=== PATIENT | female | born 1995 | race Caucasian/White ===

== ENCOUNTER → 2020-09-29 09:50 | Outpatient (CLI) | payer OTHER, MEDICAID, SELFPAY | PROVIDERS: PCP Family Medicine; Referring Provider Physician Assistant Medical; Visit Provider Physician Assistant Medical | DX: G56.01 Carpal tunnel syndrome, right upper limb (principal) | CPT/HCPCS: 95886; 95909 ==

== ENCOUNTER → 2023-07-22 10:13 | Outpatient (CLI) | payer OTHER, MEDICAID, SELFPAY ==
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
== END ==
LOC: RAD 10:15
PROVIDERS: PCP Internal Medicine; Referring Provider Physician Assistant Medical; Visit Provider Physician Assistant Medical
DX: M79.89 Other specified soft tissue disorders (principal)
CPT/HCPCS: 73130

== ENCOUNTER 2024-04-20 17:24 | Emergency (ER) | payer OTHER, SELFPAY ==
[2024-04-20 17:42] VITALS: BP 151/90; PULSE 100; RESP 16; TEMP 36.7; O2SAT 99; BMI 43.8
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
[2024-04-20 21:08] VITALS: BP 171/106; PULSE 85; RESP 18; O2SAT 100
--- NOTE | 2024-04-20 21:11 | PC.NURSE ---
2105: Pt calls from waiting room stating pt is having change in speech. This RN checks on patient. Pt is alert to person, place, but not date of or year. Pt is diaphoretic. Speech is clear and coherent. Pt has C-spine tenderness. Pt placed in rigid c-collar per protocol. Re-vitaled. Provider Elijah made aware. Verbal orders for CT head/brain w/o con and CT cervical spine w/o w/o con given.
[2024-04-20 21:41] LABS: Add Manual Diff / Slide Review NO; Basophils Absolute Auto 0 /uL (0-100); Basophils Percent Auto 0.4 % (0-2); Eosinophils Absolute Auto 100 /uL (0-450); Eosinophils Percent Auto 1.8 % (2-4); Hematocrit 40.5 % (36-46); Hemoglobin 13.6 g/dL (12.0-16.0); Lymphocytes Absolute Auto 2200 /uL (1100-4500); Mean Corpuscular HGB Conc 33.7 % (30-36); Mean Corpuscular Hemoglobin 30.7 PG (26-34); Mean Corpuscular Volume 91.1 fL (80-100); Monocytes Absolute Auto 700 /uL (0-900); Monocytes Percent Auto 8.4 % (3-14); Neutrophils Absolute Auto 5200 /uL (1500-7000); Neutrophils Percent Auto 62.4 % (50-75); Platelet Count 231 X10^3/uL (150-400); Red Blood Cell Count 4.45 X10^6/uL (4.0-5.2); Red Cell Distribution Width 13.1 % (11.6-14.8); White Blood Cell Count 8.3 X10^3/uL (4.5-11.0)
[2024-04-20 21:42] VITALS: BP 134/83; PULSE 90; RESP 18; O2SAT 98
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
--- NOTE | 2024-04-20 21:48 | PC.NURSE ---
This nurse assumed care of patient. Introduced self to patient and explained the wait times and the process of care and the plan of care for patient. This nurse was doing blood draw on patient and patient was holding a conversation asking what that was for and please tell me when you will poke me. Was able to hold small talk conversation as well. When asked whe her birthday is and her name, pt replied I don't know. AAOx3. Per Report from previous assessment from Rob LARRY, this was her response to her as well. Head CT and neck CT done, awaiting Dr. Schaefer to review.
[2024-04-20 21:52] LABS: Ur Creatinine Normal (Normal); Ur Specific Gravity Normal (Normal); Urine Amphetamines Negative (Negative); Urine Barbiturates Negative (Negative); Urine Benzodiazepines Negative (Negative); Urine Cocaine Negative (Negative); Urine MDMA Negative (Negative); Urine Methadone Negative (Negative); Urine Methamphetamines Negative (Negative); Urine Opiates Negative (Negative); Urine Oxycodone Negative (Negative); Urine Phencyclidine Negative (Negative); Urine THC Negative (Negative); Urine Tricyclic Antidepressant Negative (Negative); Urine pH Normal (Normal)
[2024-04-20 21:54] LABS: Alanine Aminotransferase 98 IU/L (<35); Albumin 4.1 g/dL (3.5-5.0); Albumin Globulin Ratio 1.1 (1.0-2.8); Alkaline Phosphatase 131 U/L (38-126); Aspartate Aminotransferase 72 IU/L (14-36); Bilirubin Total 0.4 mg/dL (0.2-1.3); Blood Urea Nitrogen 11 mg/dL (7-17); Calcium 9.4 mg/dL (8.4-10.2); Carbon Dioxide 25 mmol/L (22-32); Chloride 106 mmol/L (98-107); Estimated Glomerular Filt Rate > 60 mL/min (>60); Globulin 3.7 g/dL (1.7-4.1); Glucose 106 mg/dL (70-100); HEMOLYSIS < 15 (0-50); Potassium 3.9 mmol/L (3.4-5.1); Sodium 136 mmol/L (137-145); Total Protein 7.8 g/dL (6.3-8.2)
[2024-04-20 22:00] VITALS: PULSE 95; RESP 17; O2SAT 96
[2024-04-20 22:04] LABS: Ethanol (ETOH) < 10 mg/dL
[2024-04-20 22:10] LABS: HCG Quantitative /Beta subunit < 2.39 mIU/mL
[2024-04-20 23:15] VITALS: BP 130/67; PULSE 81; RESP 18; O2SAT 99
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
[2024-04-21] MEDS: methocarbamoL 500 MG TABLET 750 MG PO (00:10)
[2024-04-21] MEDS: KETOROLAC 30 MG/ML VIAL 15 MG IV (00:11)
--- NOTE | 2024-04-21 00:48 | PC.NURSE ---
[employer] note: Ambulated patient around the department
[2024-04-21 00:56] VITALS: BP 136/63; PULSE 76; RESP 18; O2SAT 100
== END 2024-04-21 01:08 | disposition home or self-care (01) ==
PROVIDERS: Emergency Provider Emergency Medicine; PCP Internal Medicine
DX: S16.1XXA Strain of muscle, fascia and tendon at neck level, initial encounter (principal); R51.9 Headache, unspecified; M54.50 Low back pain, unspecified; G89.29 Other chronic pain; V43.52XA Car driver injured in collision with other type car in traffic accident, initial encounter; Y92.410 Unspecified street and highway as the place of occurrence of the external cause
CPT/HCPCS: 36415; 70450; 72125; 72131; 80053; 80305; 80320; 84702; 85025; 96374; 99284; J1885

== ENCOUNTER → 2024-07-25 09:25 | Outpatient (CLI) | payer OTHER, SELFPAY ==
--- NOTE | 2024-07-25 09:27 | DI.MRI.S_ITS ---
PROCEDURE: MR BRAIN (IAC) WWO CON INDICATIONS: NYSTAGMUS / VERTIGO TECHNIQUE: Noncontrast sagittal T1 spin echo, axial FLAIR, axial gradient echo, axial diffusion and ADC through the brain. Axial thin-slice 3D CISS, coronal TruFISP, axial T1 spin echo with fat saturation through the internal auditory canals. After the administration of contrast, thin slice axial and coronal T1 spin echo with fat saturation through the internal auditory canals, and axial and coronal and sagittal T1 spin echo with fat saturation through the brain. COMPARISON: [facility], CT, CT HEAD/BRAIN WO CON, 04/20/2024, 21:10. FINDINGS: Image quality: Excellent. Cerebellopontine angles: No cerebellopontine angle masses. Inner ear structures appear normally formed. No suspicious enhancement in the internal auditory canal or along the course of the 7th cranial nerve. CSF spaces: Ventricles are normal in size and shape. No extra-axial fluid collections. Basal cisterns are patent. Brain: No intracranial bleeds or mass effects. Malik-white matter interface is intact. No abnormal intracranial enhancement. Diffusion weighted images demonstrate no acute ischemic insults. Brainstem appears normal. Normal intravascular flow voids are present. Skull and face: Calvarial marrow signal is normal. Orbits appear normal. Sinuses: Sinuses and mastoids are clear. IMPRESSION: No imaging explanation is found for this patient's presenting symptoms. No masses or abnormal enhancement are seen within the cerebellopontine angle cisterns or within the internal auditory canals. Dictated by: Calvin Jalloh M.D. on 07/27/2024 at 12:32 Approved by: Calvin Jalloh M.D. on 07/27/2024 at 12:33
== END ==
LOC: MRI 09:26
PROVIDERS: PCP Internal Medicine; Referring Provider Psychiatry & Neurology Neurology; Visit Provider Psychiatry & Neurology Neurology
DX: H55.00 Unspecified nystagmus (principal); R42 Dizziness and giddiness
CPT/HCPCS: 70553; A9579